=== PATIENT | female | born 1975 | race American Indian/Alaskan Native ===

== ENCOUNTER 2016-05-18 22:34 | Emergency (ER) | payer MEDICAID ==
[2016-05-19 00:10] LABS: Basophils % (Auto) 0.3 % (0.0-1.8); Hematocrit 35.6 % (30.3-42.9); Hemoglobin 11.7 gm/dl (10.1-14.3); Mean Corpuscular HGB Conc 33 % (30-34); Mean Corpuscular Hemoglobin 30 pg (28-32); Mean Corpuscular Volume 91 fl (79-97); Platelet Count 163 K/mm3 (140-440); Red Cell Distribution Width 15.6 % (13.2-15.2); White Blood Count 6.4 K/mm3 (4.5-11.0)
[2016-05-19 00:25] LABS: BUN/Creatinine Ratio 5.71; Calcium 9.4 mg/dL (8.4-10.2)
[2016-05-19 00:26] LABS: Chloride 93.3 mmol/L (98-107); Potassium 3.4 mmol/L (3.6-5.0)
[2016-05-19 00:45] LABS: Urine Drugs of Abuse Note Disclamer
[2016-05-19 01:08] LABS: Bacteria,Urine 1+ /HPF (Negative); Bilirubin,Urine NEG (Negative); Blood,Urine MOD (Negative); Ketones,Urine NEG (Negative); Leukocyte Esterase,Urine LG (Negative); Mucus,Urine FEW /HPF; Nitrite,Urine NEG (Negative); Protein,Urine <15 mg/dL mg/dL (Negative); Urobilinogen,Urine < 2.0 mg/dL (<2.0)
--- NOTE | 2016-05-19 02:19 | Emergency Department Report ---
ED N/V/D HPI - General Chief complaint: Nausea/Vomiting/Diarrhea Stated complaint: EMESIS/MOUTH PAIN Time Seen by Provider: 05/19/16 02:04 Source: patient Mode of arrival: Ambulatory Limitations: No Limitations - History of Present Illness Initial comments: This is a pleasant 40-year-old female who is complaining of multitude of issues. She states that she has been relatively heavy drinker and decided to stop drinking on . She reports no alcohol since then. She reports during the same time period that she has had insomnia. This is been a problem in the past she has been on Ambien for this in the past as well as most recently trazodone. She states the Ambien is much more helpful than the trazodone. She currently does not have a prescription for Ambien. In addition the patient is had numerous tactile sensations in her skin. She also reports some nausea vomiting. This has come and gone over the last 2 days. She also reports some sensation back of her throat of a thrush-like condition. Patient reports following up with Dr. Campbell here in [facility]. She denies any history of kidney disorder. She denies dysuria currently as well. She reports she's been trying to keep up with adequate oral fluids. - Related Data Previous Rx's Medication Instructions Recorded Last Taken Type Ondansetron [Zofran TAB] 4 mg PO Q8HR PRN #10 tablet 05/19/16 Unknown Rx Zolpidem [Ambien] 10 mg PO QHS #15 tab 05/19/16 Unknown Rx Allergies Allergy/AdvReac Type Severity Reaction Status Date / Time No Known Allergies Allergy Verified 05/18/16 23:40 ED Review of Systems ROS: Stated complaint: EMESIS/MOUTH PAIN Other details as noted in HPI Comment: All other systems reviewed and negative Constitutional: chills. denies: fever Eyes: denies: eye pain, eye discharge, vision change ENT: denies: ear pain, throat pain Respiratory: denies: cough, shortness of breath, wheezing Cardiovascular: denies: chest pain, palpitations Endocrine: no symptoms reported Gastrointestinal: nausea, vomiting. denies: abdominal pain, diarrhea Genitourinary: denies: urgency, dysuria, discharge Musculoskeletal: denies: back pain, joint swelling, arthralgia Skin: denies: rash, lesions Neurological: denies: headache, weakness, paresthesias Psychiatric: other (sleep disorder). denies: anxiety, depression Hematological/Lymphatic: denies: easy bleeding, easy bruising ED Past Medical Hx - Past Medical History Previous Medical History?: Yes Hx Hypertension: Yes Hx Psychiatric Treatment: Yes (depression) Additional medical history: concussion 2015 - Surgical History Past Surgical History?: Yes Additional Surgical History: disicectomy 2008 - Social History Smoking Status: Never Smoker Substance Use Type: Prescribed - Medications Home Medications: Home Medications Medication Instructions Recorded Confirmed Last Taken Type Ondansetron [Zofran TAB] 4 mg PO Q8HR PRN #10 tablet 05/19/16 Unknown Rx Zolpidem [Ambien] 10 mg PO QHS #15 tab 05/19/16 Unknown Rx ED Physical Exam - General Limitations: No Limitations General appearance: alert, in no apparent distress - Head Head exam: Present: atraumatic, normocephalic - Eye Eye exam: Present: normal appearance, EOMI. Absent: scleral icterus - ENT ENT exam: Present: normal exam, normal orophraynx, mucous membranes moist - Neck Neck exam: Present: normal inspection. Absent: tenderness, lymphadenopathy - Respiratory Respiratory exam: Present: normal lung sounds bilaterally. Absent: respiratory distress, wheezes, rales - Cardiovascular Cardiovascular Exam: Present: regular rate, normal rhythm. Absent: systolic murmur, diastolic murmur, rubs, gallop - GI/Abdominal GI/Abdominal exam: Present: soft, normal bowel sounds. Absent: tenderness, guarding - Extremities Exam Extremities exam: Present: normal inspection. Absent: tenderness, pedal edema, calf tenderness - Back Exam Back exam: Present: normal inspection. Absent: tenderness, CVA tenderness (R), CVA tenderness (L) - Neurological Exam Neurological exam: Present: alert, oriented X3 - Psychiatric Psychiatric exam: Present: normal affect, normal mood - Skin Skin exam: Present: warm, dry, intact, normal color. Absent: rash ED Course Vital Signs 05/18/16 05/19/16 05/19/16 23:31 01:12 01:16 Temperature 98.1 F Pulse Rate 90 81 Respiratory 18 16 Rate Blood Pressure 122/84 102/54 O2 Sat by Pulse 100 99 100 Oximetry 05/19/16 01:21 Temperature Pulse Rate Respiratory 20 Rate Blood Pressure O2 Sat by Pulse 100 Oximetry - Reevaluation(s) Reevaluation #1: 05/19/16 02:22 Labs are reviewed here demonstrating a normal CBC. With normal differential and indices. Electrolytes studies 2 sets demonstrate significant abnormality with a creatinine at 2.1. BUNs 12. With a ratio of 5.7. Urinalysis does demonstrate a few white blood cells and red blood cells as well as some mild markers. Not that impressive overall. The bit bothered by the creatinine being elevated. The patient indicates she did have a battery of lab tests done in March through her primary doctor and she was told that they were normal. Patient reports her only medication change recently is having hydrochlorothiazide as well as losartan added to her pressure medication regimen. Her blood pressure is little bit on the low side here she slightly overmedicated seems it excessive down her on triple drug therapy with metoprolol and hydrochlorothiazide losartan at this time. That being said I am uncomfortable he's seeing one of these medications at this point I would refer her back to her physician for this. I feel it is reasonable to place her back on the Ambien for sleep be helpful. I feel many of her symptoms are likely due to her withdrawals from alcohol. She seems to have gotten through for the most part. I don't see a reason to initiate Librium or Ativan at this point. Will treat otherwise symptomatically with nausea medication and supportive care. In regards to the creatinine, I do feel she needs close follow-up. I did suggest that she get a repeat test done in about a week. S1 nerve again there may be something related to her withdrawals that would've caused the elevation in creatinine really have an alternative differential at this time it is more likely. ED Medical Decision Making - Lab Data Result diagrams: 05/18/16 23:51 05/18/16 23:51 Critical care attestation.: If time is entered above; I have spent that time in minutes in the direct care of this critically ill patient, excluding procedure time. ED Disposition Clinical Impression: Renal insufficiency Alcohol withdrawal Qualifiers: Complication of substance-induced condition: with unspecified complication Qualified Code(s): F10.239 - Alcohol dependence with withdrawal, unspecified Insomnia Qualifiers: Insomnia type: due to other mental disorder Qualified Code(s): F51.05 - Insomnia due to other mental disorder; F99 - Mental disorder, not otherwise specified Disposition: DISCHARGED TO HOME OR SELFCARE Is pt being admited?: No Does the pt Need Aspirin: No Condition: Stable Instructions: Alcohol Withdrawal (ED) Additional Instructions: 1. Your creatinine today is 2.1. Your BUN is 12. Follow with your doctor next week to have your kidney studies re-tested. Drink plenty of fluids. 2. Gradually advance your diet as tolerated. Take the nausea medication as needed for this. 3.Take Zolpidem (Ambien) for sleep 4. No alcohol. Ever. 5. Use mouthwash as needed for throat and mouth discomforts. 6. Your urine has been sent for culture. You will get a call from us if it grows anything. 7. talk to your doctor whether you can be weaned from some of your BP medication. Prescriptions: Zolpidem [Ambien] 10 mg PO QHS #15 tab Ondansetron [Zofran TAB] 4 mg PO Q8HR PRN #10 tablet PRN Reason: Nausea Referrals: PRIMARY CARE, [Primary Care Provider] - 3-5 Days Time of Disposition: 02:45
[2016-05-19 03:02] VITALS: BP 127/72
== END 2016-05-19 03:06 | disposition home or self-care (01) ==
LOC: ED 22:34
DX: N28.9 Disorder of kidney and ureter, unspecified (principal); F10.239 Alcohol dependence with withdrawal, unspecified; F51.05 Insomnia due to other mental disorder; F99 Mental disorder, not otherwise specified; I10 Essential (primary) hypertension; F32.9 Major depressive disorder, single episode, unspecified; Z90.89 Acquired absence of other organs
CPT/HCPCS: 36415; 80048; 80307; 81001; 84703; 85025; 87086; 99283; G0480; 80320

== ENCOUNTER 2016-12-13 09:51 | Outpatient (CLI) | payer MEDICAID ==
--- NOTE | 2016-12-13 11:14 | Magnetic Resonance Report ---
MRI LUMBAR SPINE WITHOUT CONTRAST INDICATION: Abnormal lumbar spine x-ray, L5-S1 disc degeneration. COMPARISON: None similar at this institution. FINDINGS: Noncontrast multiplanar and multisequence MRI of the lumbar spine demonstrates normal conus medullaris terminating behind L1. Normal vertebral body stature, alignment and marrow signal except for slight L5 inferior endplate edema and irregularity/possible Schmorl's node and mild degenerative spurring. Nonaneurysmal abdominal aorta. Normal paraspinal soft tissues. T12-L4 levels are unremarkable without disc bulge or spinal stenosis. L5-S1 demonstrates moderate to severe disc narrowing and disc desiccation. Mild diffuse disc bulge/osteophyte complex extends into the ventral epidural space without significant spinal stenosis. Slight undercutting of bilateral neural foramina without definite exiting nerve root compression. CONCLUSION: L5-S1 disc degeneration, as detailed above. Thank you for the opportunity to participate in this patient's care.
== END 2016-12-13 09:52 | disposition home or self-care (01) ==
LOC: MRI 09:51
DX: M51.37 Other intervertebral disc degeneration, lumbosacral region (principal); R93.8 Abnormal findings on diagnostic imaging of other specified body structures
CPT/HCPCS: 72148

== ENCOUNTER 2021-03-05 09:15 | Emergency (ER) | payer MEDICAID ==
[2021-03-05 09:23] VITALS: BP 113/76
--- NOTE | 2021-03-05 12:24 | Emergency Department Report ---
Eye Injury/Foreign Body - HPI Eye Location: Right Severity: Mild Eye Symptoms: Eye Pain: No, Blurred Vision: No, Eye Redness: No (mild ), Grinding/Hammering Metal: No, Contact Lens Use: No, Photophobia: No Other History: 45-year-old female presents to the ED with complaint mild tingling sensation of the right eye . She was previously evaluated on Tuesday by ophthalmology with a cornea ulcer. Patient is here today requesting steroids. She denies any blurry vision ,headache, or dizziness. Patient is currently texting her ophthalmology whom is detailing what treatment plan for the patient . ED Review of Systems ROS: Stated complaint: EYE INFECTION Other details as noted in HPI Constitutional: denies: chills, fever Eyes: other (tingling ). denies: eye pain, eye discharge, vision change ENT: denies: ear pain, throat pain Respiratory: denies: cough, shortness of breath, wheezing Cardiovascular: denies: chest pain, palpitations Endocrine: no symptoms reported Gastrointestinal: denies: abdominal pain, nausea, diarrhea Genitourinary: denies: urgency, dysuria, discharge Musculoskeletal: denies: back pain, joint swelling, arthralgia Skin: denies: rash, lesions Neurological: denies: headache, weakness, paresthesias Psychiatric: denies: anxiety, depression Hematological/Lymphatic: denies: easy bleeding, easy bruising ED Past Medical Hx - Past Medical History Hx Hypertension: Yes Hx Psychiatric Treatment: Yes (depression) Additional medical history: concussion 2015 - Surgical History Additional Surgical History: disicectomy 2008 - Social History Smoking Status: Never Smoker Substance Use Type: Prescribed - Medications Home Medications: Home Medications Medication Instructions Recorded Confirmed Last Taken Type Ondansetron [Zofran TAB] 4 mg PO Q8HR PRN #10 tablet 05/19/16 Unknown Rx Zolpidem (Nf) [Ambien (Nf)] 10 mg PO QHS #15 tab 05/19/16 Unknown Rx Tobramycin/Dexamethasone [Tobradex 1 - 2 drop OP Q2HR 5 Days #1 bottle 03/05/21 Unknown Rx Eye Drops 0.3/0.1%] prednisoLONE ACETATE 1% [Pred 1 drops OP TID 5 Days #1 bottle 03/05/21 Unknown Rx Forte 1%] Eye Injury Exam - Exam General: Vital signs noted. No distress. Alert and acting appropriately. - Visual Acuity Right Vision Acuity Degree: Patient refuse Eye Exam: Left Purulent Discharge, Neither Injection, Neither Chemosis, Neither Abnormal Pupil, Neither EOMI, Neither Eye Foreign Body, Neither Lid Foreign Body, Neither Mucous Discharge, Neither Photophobia ED Course Vital Signs 03/05/21 09:22 Temperature 98.1 F Pulse Rate 80 Respiratory 18 Rate Blood Pressure 113/76 O2 Sat by Pulse 100 Oximetry ED Medical Decision Making - Medical Decision Making 45-year-old female presents to the ED with complaint mild tingling sensation of the right eye . She was previously evaluated on Tuesday by ophthalmology with a cornea ulcer. Patient is here today requesting steroids. She denies any blurry vision ,headache, or dizziness. Consulted with Dr. Jair Mckinney to prescribe patient tobramycin and pred- forte . Patient to follow-up with Dr. Gomez in the am . I have spoken with the patient and/or caregiver. I have explained the patient condition, diagnosis and treatment plan based on information available to me at this time. I have answered the patient and/caregiver questions and addressed any concerns. The patient and/or caregiver have has good an understanding of the patient diagnosed condition and treatment plan as can be expected at this point. The vital signs have been stable. The patient condition is stable and appropriate for discharge from the emergency department. The patient and caregiver has been given detailed instruction in a written format and expressed understanding of discharge instruction. The patient/or caregiver are aware that any significant change in condition or worsening of symptoms should prompt an immediate return to the this or the closest emergency department or call to 911 - Differential Diagnosis Corneal abrasion, corneal ulcer, conjunctivitis Critical care attestation.: If time is entered above; I have spent that time in minutes in the direct care of this critically ill patient, excluding procedure time. ED Disposition Clinical Impression: Corneal ulcer Qualifiers: Laterality: right Qualified Code(s): H16.001 - Unspecified corneal ulcer, right eye Disposition: 01 HOME / SELF CARE / HOMELESS Is pt being admited?: No Does the pt Need Aspirin: No Condition: Stable Instructions: Corneal Ulcer Additional Instructions: Follow-up with Dr. Gomez [phone] Return to the ED for worsening symptoms Take medication as prescribed Prescriptions: prednisoLONE ACETATE 1% [Pred Forte 1%] 1 drops OP TID 5 Days #1 bottle Tobramycin/Dexamethasone [Tobradex Eye Drops 0.3/0.1%] 1 - 2 drop OP Q2HR 5 Days #1 bottle Referrals: PRIMARY CARE,MD [Primary Care Provider] - 3-5 Days
== END 2021-03-05 13:01 | disposition home or self-care (01) ==
LOC: ED 09:15
DX: H16.001 Unspecified corneal ulcer, right eye (principal); I10 Essential (primary) hypertension; F32.A Depression, unspecified; Z98.890 Other specified postprocedural states
CPT/HCPCS: 99282